=== PATIENT | female | born 1950 | race Caucasian/White ===

== ENCOUNTER 2021-09-18 10:19 | Inpatient (IN) | payer MEDICARE, OTHER ==
[~2021-09-18] VITALS: Ht 160 cm; Wt 52.2 kg
--- NOTE | ~2021-09-18 | EEG ---
[address] [address] EEG STUDY REPORT Name: GAURAV MCWILLIAMS Room: [address] IN M.R.#: [id number] Admission: 09/18/21 Attend Phys: Noe Steven MD Discharge: Date of : 50 Report #: [id number] THIS REPORT FOR: cc: Ramiro Persaud Steve T. DO Khosla, Parveen K. MD ~ DATE OF SERVICE: 09/24/2021 This patient is being evaluated for altered mental status and what looks like stroke and jerking. The EEG was done to evaluate the patient for periodic lateralizing epileptiform discharges. Background activity in this patient's EEG is about 9 Hz and 30 microvolt. The patient went to sleep and that is associated with bilateral slowing and vertex sharp waves. Photic stimulation was unremarkable. Throughout the record, no active epileptiform activity was noticed. IMPRESSION: This patient's EEG is intermixed with some theta range slowing on both sides. That is a nonspecific finding, which can occur with encephalopathy, effect of psychotropic medication, dementia, etc. No electrophysiological evidence for periodic lateralizing epileptiform discharges were noticed. Thank you very much for this referral. By: 1450 [id number] Barker MD /nt
[2021-09-18 10:31] VITALS: BP 119/72
[2021-09-18 11:13] LABS: ABSOLUTE MONOCYTES 0.8 thou/uL (0.0-1.2); ABSOLUTE NEUTROPHILS 7.1 thou/uL (1.6-8.1); BASOPHILS 0.3 %; EOSINOPHILS 0.2 %; HEMATOCRIT 40.1 % (37.0-47.0); HEMOGLOBIN 13.4 gm/dL (12.0-15.0); LYMPHOCYTES 20.3 %; MCH 27.6 pg (26.0-34.0); MCHC 33.4 g/dL (28.0-37.0); MCV 82.9 fL (80.0-100.0); MONOCYTES 8.1 %; MPV 7.4 fl. (7.2-11.1); NUCLEATED RBCS 0 /100WBC; PLATELET COUNT* 332 thou/uL (150-400); POLYS 71.1 %; RBC 4.83 mil/uL (4.20-5.00); RDW-CV 16.7 % (10.5-14.5)
[2021-09-18 11:19] LABS: CALCIUM 8.3 mg/dL (8.5-10.1); CREATININE 1.5 mg/dL (0.6-1.3); POTASSIUM 3.3 mmol/L (3.5-5.1)
[2021-09-18 11:29] LABS: ALBUMIN 3.1 g/dL (3.4-5.0); TOTAL BILIRUBIN 0.6 mg/dL (<0.1-1.0); TOTAL PROTEIN 6.6 g/dL (6.4-8.2)
[2021-09-18] MEDS ORDERED: HYDROCHLOROTHIA25 M1 PO (11:30)
[2021-09-18] MEDS ORDERED: OMEPRAZOLE40 MG PO (11:31)
[2021-09-18] MEDS ORDERED: KLONOPIN1 MG PO (11:32)
[2021-09-18] MEDS ORDERED: TIROSINT50 MCG PO (11:32)
[2021-09-18] MEDS ORDERED: FENTANYL1 EAC3 TRANSDERM (11:33)
[2021-09-18] MEDS ORDERED: NORCO 10-325 T1 EACH PO (11:33)
[2021-09-18] MEDS ORDERED: TRAZODONE HCL50 MG PO (11:33)
[2021-09-18] MEDS ORDERED: [UNRECOGNIZED DRUG - OTHER] (11:33)
[2021-09-18] MEDS ORDERED: PREGABALIN75 MG PO (11:34)
[2021-09-18] MEDS ORDERED: CELEXA 10 MG TA10 M1 PO (11:35)
[2021-09-18] MEDS ORDERED: ROSUVASTATIN CA10 MG PO (11:35)
--- NOTE | 2021-09-18 12:57 | EKG ---
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1950 Requested By: Darion Mosquera Order Number: [id number] MD: Cristobal Pacheco Measurements Intervals [place] Rate: 87 P: 74 [place]: 135 QRS: 57 QRSD: 89 T: 267 QT: 471 QTc: 567 Interpretive Statements Sinus rhythm Anteroseptal infarct, old, possible Nonspecific T abnormalities, inferior leads Prolonged QT interval No previous ECG available for comparison Electronically Signed On 09-18-2021 12:56:50 PUBLIC FINANCE SPECIALIST by Cristobal Pacheco [email or web address] <ELECTRONICALLY SIGNED> By: Cristobal Pacheco MD, FACC 09/18/21 1256 1039 1039 Cristobal Pacheco MD, FAC /EPI
[2021-09-18 15:31] VITALS: BP 119/80
--- NOTE | 2021-09-18 16:25 | 2DMMODE ---
[place] [address] 2 D/M-MODE ECHOCARDIOGRAM Name: ELI MCWILLIAMSNT Room: [address] IN .R.#: [id number] Admission: 09/18/21 Attend Phys: Noe Steven, Discharge: Date of : 50 Date of Service: 09/18/21 1624 Report #: [id number] THIS REPORT FOR: cc: Ramiro Persaud Steve T. DO Liston, Michael J. MD [facility] ~ APPROVED REPORT Study performed: 09/18/2021 15:47:25 EXAM: Comprehensive 2D, Doppler, and color-flow Echocardiogram Patient Location: In-Patient Room #: er Status: routine BSA: 1.53 HR: 85 bpm BP: 119/80 mmHg Rhythm: NSR Other Information Study Quality: Good Indications CVA/TIA Echo Enhancing Agent Indication: Rule out Shunt Agent(s) / Amount(s) Used: Agitated Saline 10 cc 2D Dimensions IVSd: 8.36 (7-11mm) LVOT Diam: 20.29 (18-24mm) LVDd: 31.54 mm PWd: 7.08 (7-11mm) LVDs: 19.64 (25-40mm) Aortic Root: 29.25 mm Volumes Left Atrial Volume (Systole) LA ESV Index: 22.60 mL/m2 Aortic Valve AoV Peak Bola.: 0.99 m/s AO Peak Gr.: 3.95 mmHg LVOT Max P.27 mmHg AO Mean Gr.: 2.32 mmHg LVOT Mean P.05 [place] [address] 2 D/M-MODE ECHOCARDIOGRAM Name: NEVIN MCWILLIAMSYESSI Cooper Room: [address] IN .R.#: [id number] Admission: 09/18/21 Attend Phys: Noe Steven, Discharge: Date of : 50 Date of Service: 09/18/21 1624 Report #: [id number] LVOT Max V: 1.03 m/s AO V2 VTI: 18.15 cm LVOT Mean V: 0.66 m/s STACEY (VTI): 2.88 cm2 LVOT V1 VTI: 16.18 cm Mitral Valve E/A Ratio: 0.85 MV Decel. Time: 285.19 ms MV E Max Bola.: 0.64 m/s MV PHT: 82.70 ms MVA (PHT): 2.66 cm2 TDI E/Lateral E': 4.00 E/Medial E': 8.00 Medial E' Bola.: 0.08 m/s Lateral E' Bola.: 0.16 m/s Pulmonary Valve PV Peak Bola.: 0.75 m/s PV Peak Gr.: 2.22 mmHg Tricuspid Valve RAP Estimate: 5.00 mmHg TR Peak Gr.: 24.24 mmHg RVSP: 29.00 mmHg PA Pressure: 29.00 mmHg Left Ventricle The left ventricle is normal size. There is normal LV segmental wall motion. There is normal left ventricular wall thickness. Left ventricular systolic function is normal. LVEF is 55-60%. Grade I - abnormal relaxation pattern. Right Ventricle The right ventricle is normal size. The right ventricular systolic function is normal. Atria The left atrium size is normal. The interatrial septum is intact with no evidence for an atrial septal defect. The right atrium size is normal. Aortic Valve The aortic valve is normal in structure. No aortic regurgitation is present. There is no aortic valvular stenosis. Mitral Valve The mitral valve is normal in structure. Mild mitral regurgitation. No evidence [place] [address] 2 D/M-MODE ECHOCARDIOGRAM Name: GAURAV MCWILLIAMS Room: [address] IN .R#: [id number] Admission: 09/18/21 Attend Phys: Noe Steven, Discharge: Date of : 50 Date of Service: 09/18/21 1624 Report #: [id number] Tricuspid Valve The tricuspid valve is normal in structure. Trace tricuspid regurgitation. No pulmonary hypertension. Pulmonic Valve The pulmonary valve is normal in structure. There is no pulmonic valvular regurgitation. Great Vessels The aortic root is normal in size. IVC is normal in size and collapses >50% with inspiration. Pericardium There is no pericardial effusion. <Conclusion> The left ventricle is normal size. There is normal left ventricular wall thickness. Left ventricular systolic function is normal. LVEF is 55-60%. Grade I - abnormal relaxation pattern. Mild mitral regurgitation. Trace tricuspid regurgitation. No pulmonary hypertension. IVC is normal in size and collapses >50% with inspiration. The interatrial septum is intact with no evidence for an atrial septal defect. <ELECTRONICALLY SIGNED> By: Cristobal Pacheco MD, FACC 09/18/21 1624 23 162 Cristobal Pacheco MD, FACC /INF
[2021-09-18 16:30] VITALS: BP 122/84
[2021-09-18 20:00] VITALS: BP 146/84
[2021-09-19] VITALS: BP 151/86
[2021-09-19 04:00] VITALS: BP 119/78
[2021-09-19 04:23] LABS: ABSOLUTE LYMPHOCYTES 2.5 thou/uL (0.8-5.3); ABSOLUTE MONOCYTES 0.8 thou/uL (0.0-1.2); ABSOLUTE NEUTROPHILS 5.2 thou/uL (1.6-8.1); BASOPHILS 0.4 %; EOSINOPHILS 0.1 %; HEMATOCRIT 36.9 % (37.0-47.0); HEMOGLOBIN 12.3 gm/dL (12.0-15.0); LYMPHOCYTES 29.2 %; MCH 27.6 pg (26.0-34.0); MCHC 33.3 g/dL (28.0-37.0); MCV 82.6 fL (80.0-100.0); MONOCYTES 9.2 %; MPV 7.6 fl. (7.2-11.1); NUCLEATED RBCS 0 /100WBC; PLATELET COUNT* 302 thou/uL (150-400); POLYS 61.1 %; RBC 4.46 mil/uL (4.20-5.00); RDW-CV 16.4 % (10.5-14.5); WBC 8.5 thou/uL (4.0-11.0)
[2021-09-19 04:38] LABS: CHOLESTEROL 131 mg/dL (<200); HDL CHOLESTEROL 56 mg/dL (>40); LDL CHOLESTEROL 60 mg/dL (<100); SERUM ASSESSMENT Clear; TC:HDL 2.3 Ratio (Not establshd); TRIGLYCERIDE 77 mg/dL (<150); VLDL 15 mg/dL (<40)
[2021-09-19 04:42] LABS: CALCIUM 8.6 mg/dL (8.5-10.1)
[2021-09-19 05:07] LABS: GLYCOHEMOGLOBIN (HGB A1C) 5.3 % (4.8-5.6)
[2021-09-19 05:25] LABS: POTASSIUM 2.5 mmol/L (3.5-5.1)
[2021-09-19 08:00] VITALS: BP 153/84
[2021-09-19 11:55] LABS: ALBUMIN 2.9 g/dL (3.4-5.0); DIRECT BILIRUBIN 0.2 mg/dL (<0.1-0.3); TOTAL BILIRUBIN 0.6 mg/dL (<0.1-1.0)
[2021-09-19 12:00] VITALS: BP 143/78
[2021-09-19 17:14] VITALS: BP 146/83
[2021-09-19 20:00] VITALS: BP 159/95
[2021-09-20] VITALS: BP 101/47; BP 150/90
[2021-09-20 04:00] VITALS: BP 161/91
[2021-09-20 06:00] LABS: ABSOLUTE BASOPHILS 0.1 thou/uL (0.0-0.2); ABSOLUTE LYMPHOCYTES 1.6 thou/uL (0.8-5.3); ABSOLUTE NEUTROPHILS 9.5 thou/uL (1.6-8.1); BASOPHILS 0.5 %; EOSINOPHILS 0.1 %; HEMATOCRIT 39.5 % (37.0-47.0); LYMPHOCYTES 13.5 %; MCH 27.3 pg (26.0-34.0); MCV 82.9 fL (80.0-100.0); MPV 7.6 fl. (7.2-11.1); NUCLEATED RBCS 0 /100WBC; PLATELET COUNT* 325 thou/uL (150-400); POLYS 77.9 %; RBC 4.77 mil/uL (4.20-5.00); WBC 12.2 thou/uL (4.0-11.0)
[2021-09-20 06:18] LABS: ALBUMIN 3.1 g/dL (3.4-5.0); CALCIUM 8.8 mg/dL (8.5-10.1); CREATININE 0.7 mg/dL (0.6-1.3); POTASSIUM 3.5 mmol/L (3.5-5.1); TOTAL PROTEIN 6.4 g/dL (6.4-8.2)
[2021-09-20 08:00] VITALS: BP 153/86
[2021-09-20 12:00] VITALS: BP 164/95
[2021-09-20 16:00] VITALS: BP 145/85
[2021-09-20 20:00] VITALS: BP 146/86
[2021-09-21 02:46] VITALS: BP 148/80
[2021-09-21 05:54] VITALS: BP 135/82
[2021-09-21 11:24] VITALS: BP 106/71
[2021-09-21 15:45] VITALS: BP 145/83
[2021-09-21 20:00] VITALS: BP 145/85
[2021-09-22 00:38] VITALS: BP 124/80
[2021-09-22 04:30] VITALS: BP 147/88
[2021-09-22 07:31] LABS: ABSOLUTE BASOPHILS 0.1 thou/uL (0.0-0.2); ABSOLUTE LYMPHOCYTES 2.2 thou/uL (0.8-5.3); ABSOLUTE MONOCYTES 0.8 thou/uL (0.0-1.2); ABSOLUTE NEUTROPHILS 5.4 thou/uL (1.6-8.1); BASOPHILS 0.6 %; EOSINOPHILS 0.4 %; HEMATOCRIT 38.1 % (37.0-47.0); HEMOGLOBIN 12.6 gm/dL (12.0-15.0); LYMPHOCYTES 26.1 %; MCH 27.4 pg (26.0-34.0); MCHC 33.1 g/dL (28.0-37.0); MCV 82.7 fL (80.0-100.0); MONOCYTES 9.7 %; MPV 7.7 fl. (7.2-11.1); NUCLEATED RBCS 0 /100WBC; PLATELET COUNT* 290 thou/uL (150-400); POLYS 63.2 %; RBC 4.61 mil/uL (4.20-5.00); WBC 8.5 thou/uL (4.0-11.0)
[2021-09-22 07:49] LABS: ALBUMIN 2.7 g/dL (3.4-5.0); CALCIUM 8.5 mg/dL (8.5-10.1); CREATININE 0.8 mg/dL (0.6-1.3); TOTAL BILIRUBIN 0.8 mg/dL (<0.1-1.0); TOTAL PROTEIN 5.6 g/dL (6.4-8.2)
[2021-09-22 07:53] LABS: POTASSIUM 2.9 mmol/L (3.5-5.1)
[2021-09-22 08:15] VITALS: BP 144/82
[2021-09-22 13:40] VITALS: BP 138/69
[2021-09-22 17:24] VITALS: BP 159/89
[2021-09-22 20:00] VITALS: BP 153/95
[2021-09-23] VITALS: BP 131/79
[2021-09-23 04:00] VITALS: BP 141/70
[2021-09-23 08:30] VITALS: BP 155/85
[2021-09-23 11:56] VITALS: BP 136/77
[2021-09-23 16:02] VITALS: BP 114/65
[2021-09-23 19:50] VITALS: BP 150/83
[2021-09-24] VITALS (13 sets, daily range): BP systolic 112–153; BP diastolic 66–82
--- NOTE | 2021-09-24 16:37 | TEE ---
[place] [address] TRANSESOPHAGEAL ECHOCARDIOGRAM Name: ELI MCWILLIAMSAG Cooper Room: [address] IN M.R.#: [id number] Admission: 09/18/21 Attend Phys: Noe Steven, Discharge: Date of : 50 Date of Service: 09/24/21 1637 Report #: [id number] THIS REPORT FOR: cc: Ramiro Persaud Steve T. DO Liston,Cristobal Loza MD FAC ~ APPROVED REPORT Study performed: 09/24/2021 12:50:59 EXAM: Transesophageal Echocardiogram BSA: 1.51 HR: 81 bpm BP: 126/79 mmHg Other Information Study Quality: Good Indications CVA/TIA Echo Enhancing Agent Indication: Rule out Shunt Agent(s) / Amount(s) Used: Agitated Saline 8 cc Procedure After obtaining informed consent, patient underwent transesophageal echo in the [employer]. Type of Sedation : Conscious Sedation Sedation was administered by Ally Solis RN. Sedation start time: 11:55 Case end Time: 12:15 Sedation was achieved intravenously with: Versed (4) Fentanyl (100) Transesophageal probe was inserted and advanced into esophagus without difficulty by Cristobal Pacheco MD, FACC. Echo enhancement indication: R/O Septal defect. Echo enhancement agent administered: Agitated Saline The MAMADOU was performed without complications. Throughout the procedure, the blood pressure, pulse oximetry, cardiac rhythm, and rate were monitored. The patient tolerated the procedure without adverse effects. Recovery from conscious sedation was uneventful [place] [address] TRANSESOPHAGEAL ECHOCARDIOGRAM Name: GAURAV MCWILLIAMS Room: [address] IN [facility]#: [id number] Admission: 09/18/21 Attend Phys: Noe Steven, Discharge: Date of : 50 Date of Service: 09/24/21 1637 Report #: [id number] Left Ventricle The left ventricle is normal size. There is normal LV segmental wall motion. There is normal left ventricular wall thickness. Left ventricular systolic function is normal. LVEF is 60-65%. Atria No thrombus is visualized in the left atrium or appendage. Injection of bubbles documented an interatrial shunt. Aortic Valve The aortic valve is normal in structure. No aortic regurgitation is present. There is no aortic valvular stenosis. Mitral Valve The mitral valve is normal in structure. There is no mitral valve regurgitation noted. No evidence of mitral valve stenosis. Great Vessels The aortic root is normal in size. <Conclusion> The left ventricle is normal size. There is normal left ventricular wall thickness. Left ventricular systolic function is normal. LVEF is 60-65%. There is normal LV segmental wall motion. Injection of bubbles documented an interatrial shunt. No thrombus is visualized in the left atrium or appendage. <ELECTRONICALLY SIGNED> By: Cristobal Pacheco MD, FACC 09/24/21 163 36 36 Cristobal Pacheco MD, FACC /INF
[2021-09-25] VITALS: BP 143/79
[2021-09-25 04:00] VITALS: BP 158/85
[2021-09-25 11:37] VITALS: BP 114/66
[2021-09-25 16:23] VITALS: BP 153/82
[2021-09-27 19:07] LABS: ANA INTERPRETATION Negative (())
== END 2021-09-25 20:11 | DRG 64 ==
LOC: M.ERS 10:19 → M.TBA-ER 12:10 → M.2W 12:10
PROVIDERS: Family Medicine; Psychiatry & Neurology Neuromuscular Medicine; ADMIT Internal Medicine; ATTEND Internal Medicine
PROC: B24BZZ4 Ultrasonography of Heart with Aorta, Transesophageal (ICD-10-PCS; principal; 2021-09-24)
DX: I63.9 Cerebral infarction, unspecified (principal); E43 Unspecified severe protein-calorie malnutrition; J69.0 Pneumonitis due to inhalation of food and vomit; I61.9 Nontraumatic intracerebral hemorrhage, unspecified; N17.9 Acute kidney failure, unspecified; E87.1 Hypo-osmolality and hyponatremia; G81.91 Hemiplegia, unspecified affecting right dominant side; Z20.822 Contact with and (suspected) exposure to COVID-19; I10 Essential (primary) hypertension; F17.210 Nicotine dependence, cigarettes, uncomplicated; E87.6 Hypokalemia; I95.9 Hypotension, unspecified; Z85.3 Personal history of malignant neoplasm of breast; Z68.20 Body mass index [BMI] 20.0-20.9, adult; Z79.899 Other long term (current) drug therapy; Z23 Encounter for immunization

== ENCOUNTER 2021-09-25 16:13 | Inpatient (IN) | payer MEDICARE, OTHER ==
[~2021-09-25] VITALS: Ht 157.5 cm; Wt 51.3 kg
[~2021-09-25 16:13] MED LIST: CELEXA 10 MG TA10 M1 PO; FENTANYL1 EAC3 TRANSDERM; HYDROCHLOROTHIA25 M1 PO; KLONOPIN1 MG PO; NORCO 10-325 T1 EACH PO; OMEPRAZOLE40 MG PO; PREGABALIN75 MG PO; ROSUVASTATIN CA10 MG PO; TIROSINT50 MCG PO; TRAZODONE HCL50 MG PO; [UNRECOGNIZED DRUG - OTHER]
[2021-09-25 21:15] VITALS: BP 143/79
[2021-09-26 04:41] LABS: HEMATOCRIT 38.8 % (37.0-47.0); HEMOGLOBIN 12.8 gm/dL (12.0-15.0); MCH 27.4 pg (26.0-34.0); MPV 7.3 fl. (7.2-11.1); RBC 4.67 mil/uL (4.20-5.00); RDW-CV 17.3 % (10.5-14.5); WBC 11.1 thou/uL (4.0-11.0)
[2021-09-26 05:03] LABS: CALCIUM 8.4 mg/dL (8.5-10.1); CREATININE 0.8 mg/dL (0.6-1.3); POTASSIUM 3.2 mmol/L (3.5-5.1)
[2021-09-26 08:02] VITALS: BP 155/79
[2021-09-26 19:34] VITALS: BP 132/68
[2021-09-27 04:17] LABS: ABSOLUTE BASOPHILS 0.1 thou/uL (0.0-0.2); ABSOLUTE EOSINOPHILS 0.1 thou/uL (0.0-0.7); ABSOLUTE LYMPHOCYTES 2.9 thou/uL (0.8-5.3); ABSOLUTE MONOCYTES 0.6 thou/uL (0.0-1.2); ABSOLUTE NEUTROPHILS 5.5 thou/uL (1.6-8.1); BASOPHILS 0.8 %; EOSINOPHILS 1.3 %; HEMATOCRIT 37.8 % (37.0-47.0); HEMOGLOBIN 12.7 gm/dL (12.0-15.0); LYMPHOCYTES 31.1 %; MCH 27.8 pg (26.0-34.0); MCHC 33.6 g/dL (28.0-37.0); MCV 82.8 fL (80.0-100.0); MPV 7.1 fl. (7.2-11.1); NUCLEATED RBCS 0 /100WBC; PLATELET COUNT* 358 thou/uL (150-400); POLYS 59.8 %; RBC 4.56 mil/uL (4.20-5.00); RDW-CV 17.6 % (10.5-14.5); WBC 9.2 thou/uL (4.0-11.0)
[2021-09-27 04:42] LABS: ALBUMIN 2.7 g/dL (3.4-5.0); CALCIUM 8.6 mg/dL (8.5-10.1); CREATININE 0.8 mg/dL (0.6-1.3); POTASSIUM 3.3 mmol/L (3.5-5.1); TOTAL BILIRUBIN 0.6 mg/dL (<0.1-1.0); TOTAL PROTEIN 5.7 g/dL (6.4-8.2)
[2021-09-27 07:30] VITALS: BP 165/85
[2021-09-27 20:27] VITALS: BP 136/74
[2021-09-28 07:38] VITALS: BP 146/83
[2021-09-28 19:50] VITALS: BP 113/84
[2021-09-29 07:51] VITALS: BP 158/88
[2021-09-29 09:14] LABS: ABSOLUTE BASOPHILS 0.1 thou/uL (0.0-0.2); ABSOLUTE EOSINOPHILS 0.1 thou/uL (0.0-0.7); ABSOLUTE LYMPHOCYTES 2.4 thou/uL (0.8-5.3); ABSOLUTE MONOCYTES 0.6 thou/uL (0.0-1.2); ABSOLUTE NEUTROPHILS 5.1 thou/uL (1.6-8.1); BASOPHILS 0.6 %; EOSINOPHILS 1.7 %; HEMATOCRIT 37.3 % (37.0-47.0); HEMOGLOBIN 12.4 gm/dL (12.0-15.0); LYMPHOCYTES 29.1 %; MCH 27.4 pg (26.0-34.0); MCHC 33.1 g/dL (28.0-37.0); MCV 82.6 fL (80.0-100.0); NUCLEATED RBCS 0 /100WBC; POLYS 61.6 %; RBC 4.52 mil/uL (4.20-5.00); RDW-CV 17.3 % (10.5-14.5); WBC 8.3 thou/uL (4.0-11.0)
[2021-09-29 09:22] LABS: CALCIUM 8.3 mg/dL (8.5-10.1); CREATININE 0.8 mg/dL (0.6-1.3); POTASSIUM 3.2 mmol/L (3.5-5.1)
[2021-09-29 10:00] LABS: PLATELET COUNT* 438 thou/uL (150-400)
[2021-09-29 19:35] VITALS: BP 139/89
[2021-09-30 08:15] VITALS: BP 141/74
[2021-09-30 20:12] VITALS: BP 158/71
[2021-10-01 05:53] LABS: HEMATOCRIT 36.8 % (37.0-47.0); HEMOGLOBIN 12.1 gm/dL (12.0-15.0); MCH 27.9 pg (26.0-34.0); MCHC 32.9 g/dL (28.0-37.0); MCV 84.7 fL (80.0-100.0); MPV 7.6 fl. (7.2-11.1); RBC 4.35 mil/uL (4.20-5.00); RDW-CV 17.9 % (10.5-14.5); WBC 9.8 thou/uL (4.0-11.0)
[2021-10-01 06:15] LABS: CALCIUM 8.4 mg/dL (8.5-10.1); POTASSIUM 4.5 mmol/L (3.5-5.1)
[2021-10-01 07:46] VITALS: BP 148/76
--- NOTE | 2021-10-01 10:49 | EKG ---
[facility] [address] [place] [address] ELECTROCARDIOGRAM REPORT Name: NEVIN MCWILLIAMSYESSI Cooper Room: [address] ADM IN .R.#: [id number] Admission: 09/25/21 Attend Phys: Luther Alicia MD Discharge: Date of : 50 Date of Service: 09/28/219[address] Report #: [id number] THIS REPORT FOR: //name// [facility] Test Date: 2021-09-28 Test Time: 09:02:09 Pat Name: GAURAV MCWILLIAMS Department: Room: [address] Gender: F Fire Crew Worker: SB : 1950 Requested By: Varghese Canales Order Number: [id number] Reading MD: Jones Eduardo Measurements Intervals [place] Rate: 97 P: 67 PA: 122 QRS: 34 QRSD: 72 T: 43 QT: 377 QTc: 479 Interpretive Statements Sinus rhythm nonspecific t wave changes Borderline low voltage, extremity leads Borderline prolonged QT interval Compared to ECG 09/18/2021 10:39:47 Myocardial infarct finding no longer present Electronically Signed On 10-01-2021 10:49:09 CASEWORKER by Jones Eduardo [email or web address] <ELECTRONICALLY SIGNED> By: Jones Eduardo MD, [facility] 10/01/21 1049 1 0902 Jones Eduardo MD, [facility] /EPI
[2021-10-01 15:42] VITALS: BP 148/76
[2021-10-01 19:00] VITALS: BP 157/91
[2021-10-02 07:55] VITALS: BP 130/71
[2021-10-02 19:00] VITALS: BP 134/76
[2021-10-03 06:28] LABS: HEMATOCRIT 40.9 % (37.0-47.0); HEMOGLOBIN 13.3 gm/dL (12.0-15.0); MCH 27.7 pg (26.0-34.0); MCHC 32.5 g/dL (28.0-37.0); MCV 85.1 fL (80.0-100.0); MPV 7.5 fl. (7.2-11.1); RBC 4.8 mil/uL (4.20-5.00); RDW-CV 17.9 % (10.5-14.5); WBC 10.1 thou/uL (4.0-11.0)
[2021-10-03 06:34] LABS: CALCIUM 8.9 mg/dL (8.5-10.1); POTASSIUM 4.4 mmol/L (3.5-5.1)
[2021-10-03 07:53] VITALS: BP 150/94
[2021-10-03 19:42] VITALS: BP 117/77
[2021-10-04 07:53] VITALS: BP 132/79
[2021-10-04] MEDS ORDERED: NORCO 10-325 T1 EACH PO (09:34)
[2021-10-04] MEDS ORDERED: BAYER CHEWABLE81 MG PO (12:50)
[2021-10-04 13:29] VITALS: BP 148/76
== END 2021-10-04 13:59 | disposition home health service (06) | DRG 56 ==
LOC: M.REH 16:13
PROVIDERS: Internal Medicine; ADMIT Physical Medicine & Rehabilitation; ATTEND Physical Medicine & Rehabilitation
DX: G81.91 Hemiplegia, unspecified affecting right dominant side (principal); I63.9 Cerebral infarction, unspecified; J69.0 Pneumonitis due to inhalation of food and vomit; I61.9 Nontraumatic intracerebral hemorrhage, unspecified; N17.9 Acute kidney failure, unspecified; E46 Unspecified protein-calorie malnutrition; I28.0 Arteriovenous fistula of pulmonary vessels; Q21.1 Atrial septal defect; F41.9 Anxiety disorder, unspecified; E78.5 Hyperlipidemia, unspecified; F17.210 Nicotine dependence, cigarettes, uncomplicated; K21.9 Gastro-esophageal reflux disease without esophagitis; G89.29 Other chronic pain; G47.00 Insomnia, unspecified; E03.9 Hypothyroidism, unspecified; E87.6 Hypokalemia; Z20.822 Contact with and (suspected) exposure to COVID-19; Z85.3 Personal history of malignant neoplasm of breast; Z68.20 Body mass index [BMI] 20.0-20.9, adult

== ENCOUNTER → 2021-10-16 | Outpatient (CLI) | payer MEDICARE, OTHER ==
[~2021-10-16] MED LIST changes: +BAYER CHEWABLE81 MG PO
== END ==
LOC: M.WC 09:39
PROVIDERS: ATTEND Surgery
DX: L89.153 Pressure ulcer of sacral region, stage 3 (principal); I10 Essential (primary) hypertension; Z87.891 Personal history of nicotine dependence; Z79.82 Long term (current) use of aspirin; Z85.3 Personal history of malignant neoplasm of breast; Z86.73 Personal history of transient ischemic attack (TIA), and cerebral infarction without residual deficits; Z86.718 Personal history of other venous thrombosis and embolism

== ENCOUNTER → 2021-10-23 | Outpatient (CLI) | payer MEDICARE, OTHER | LOC: M.WC 09:21 | PROVIDERS: ATTEND Surgery | DX: L89.153 Pressure ulcer of sacral region, stage 3 (principal); I10 Essential (primary) hypertension; Z87.891 Personal history of nicotine dependence; Z79.82 Long term (current) use of aspirin; Z85.3 Personal history of malignant neoplasm of breast; Z86.73 Personal history of transient ischemic attack (TIA), and cerebral infarction without residual deficits; Z86.718 Personal history of other venous thrombosis and embolism ==

== ENCOUNTER → 2021-11-06 | Outpatient (CLI) | payer MEDICARE, OTHER | LOC: M.WC 09:18 | PROVIDERS: ATTEND Surgery | DX: L89.153 Pressure ulcer of sacral region, stage 3 (principal); I10 Essential (primary) hypertension; Z87.891 Personal history of nicotine dependence; Z79.82 Long term (current) use of aspirin; Z85.3 Personal history of malignant neoplasm of breast; Z86.73 Personal history of transient ischemic attack (TIA), and cerebral infarction without residual deficits; Z86.718 Personal history of other venous thrombosis and embolism ==

== ENCOUNTER → 2021-11-14 | Outpatient (CLI) | payer MEDICARE, OTHER | LOC: M.WC 11-13 09:30 | PROVIDERS: ATTEND Surgery | DX: L89.153 Pressure ulcer of sacral region, stage 3 (principal); E44.0 Moderate protein-calorie malnutrition; I10 Essential (primary) hypertension; Z87.891 Personal history of nicotine dependence; Z79.82 Long term (current) use of aspirin; Z85.3 Personal history of malignant neoplasm of breast; Z86.73 Personal history of transient ischemic attack (TIA), and cerebral infarction without residual deficits; Z86.718 Personal history of other venous thrombosis and embolism ==